=== PATIENT | female | born 1935 | race Caucasian/White ===

== ENCOUNTER → 2017-02-14 | Outpatient (CLI) | payer MEDICARE, OTHER ==
[~2017-02-14] MED LIST: ASPIRIN 32325 MG/TAB PO; NO HOME MEDICATIONS; NORCO 325 MG-51 TAB PO; PROBIOTIC FORMU1 CAP PO; PROTONIX 40MG T40 MG PO
== END ==
LOC: MC.RAD 10-17 13:00
DX: Z12.31 Encounter for screening mammogram for malignant neoplasm of breast (principal); D24.2 Benign neoplasm of left breast; D24.1 Benign neoplasm of right breast

== ENCOUNTER → 2018-04-30 | Outpatient (CLI) | payer MEDICARE, OTHER | LOC: MC.RAD 13:12 | DX: Z12.31 Encounter for screening mammogram for malignant neoplasm of breast (principal) ==

== ENCOUNTER → 2018-08-19 | Outpatient (CLI) | payer MEDICARE, OTHER ==
[2018-08-19] VITALS (13 sets, daily range): BP systolic 148–164; BP diastolic 83–110; PULSE 70–82
[~2018-08-19] VITALS: Ht 170.2 cm; Wt 80.2 kg
[2018-08-19 10:25] LABS: INR 0.9 (0.8-3.0); PROTHROMBIN TIME 10.6 SECONDS (9.7-12.8)
== END ==
LOC: COL.RAD 09:50
PROVIDERS: Internal Medicine Gastroenterology
DX: K76.0 Fatty (change of) liver, not elsewhere classified (principal); R74.0 Nonspecific elevation of levels of transaminase and lactic acid dehydrogenase [LDH]
CPT/HCPCS: 32108

== ENCOUNTER 2020-06-02 08:12 | Outpatient (CLI) | payer MEDICARE, OTHER ==
[2020-06-02] VITALS (9 sets, daily range): BP systolic 116–144; BP diastolic 70–94; PULSE 78–93; TEMP 98
[~2020-06-02] VITALS: Ht 170.2 cm; Wt 77.0 kg
[2020-06-02 09:01] LABS: MEAN CELL VOLUME 100 fl (80.0-100.0); MEAN CORPUSCULAR HEMOGLOBIN 32 pg (27.0-31.0); MEAN CORPUSCULAR HGB CONC 32 g/dl (33.0-37.0); MEAN PLATELET VOLUME 10.1 fl (7.4-10.4); PLATELET COUNT 175 K/mm3 (130-400); RED BLOOD COUNT 3.39 M/mm3 (4.10-5.30); REDCELL DISTRIBUTION WIDTH-CV 14.1 % (11.5-14.5)
[2020-06-02] MEDS ORDERED: TYLENOL 325MG325 MG PO (09:05)
[2020-06-02] MEDS ORDERED: ASPIRIN 32325 MG/TAB PO (09:05)
[2020-06-02] MEDS ORDERED: ANTACID500 M1 (09:06)
[2020-06-02] MEDS ORDERED: LASIX 20MG TABL20 MG PO (09:06)
[2020-06-02] MEDS ORDERED: PRINIVIL10 MG PO (09:07)
[2020-06-02] MEDS ORDERED: MELATONIN5 M1 SL (09:07)
[2020-06-02] MEDS ORDERED: ACTIGALL 300MG300 MG PO (09:08)
[2020-06-02 09:14] LABS: PROTHROMBIN TIME 11.3 SECONDS (9.7-12.8)
[2020-06-02 09:17] LABS: CALCIUM 9.7 mg/dL (8.4-10.2); CREATININE, serum 0.97 (0.52-1.25); POTASSIUM 4.5 mmol/L (3.4-5.0)
[2020-06-02] MEDS ORDERED: ZEBETA 5MG5 MG PO (17:22)
== END 2020-06-02 17:30 | disposition home or self-care (01) ==
LOC: COL.RAD 08:12
PROVIDERS: Internal Medicine Cardiovascular Disease
DX: I51.7 Cardiomegaly (principal); I35.8 Other nonrheumatic aortic valve disorders
CPT/HCPCS: C1769; J1644; J2250; J2704; J3010

== ENCOUNTER → 2021-08-25 | Outpatient (CLI) | payer MEDICARE, OTHER ==
[~2021-08-25] MED LIST changes: +ACTIGALL 300MG300 MG PO; +ANTACID500 M1; +LASIX 20MG TABL20 MG PO; +MELATONIN5 M1 SL; +PRINIVIL10 MG PO; +TYLENOL 325MG325 MG PO; +ZEBETA 5MG5 MG PO
== END ==
LOC: COL.RAD 12:24
DX: K76.89 Other specified diseases of liver (principal); K86.89 Other specified diseases of pancreas
CPT/HCPCS: A9585

== ENCOUNTER 2022-02-17 16:04 | Inpatient (IN) | payer MEDICARE, OTHER ==
[~2022-02-17] VITALS: Ht 167.6 cm; Wt 69.9 kg
[~2022-02-17 16:04] MED LIST changes: -ANTACID500 M1; +ANTACID500 M1 PO
[2022-02-17 20:47] VITALS: BP 115/64; PULSE 89; TEMP 97.4
[2022-02-17 23:20] LABS: HEMATOCRIT 30.2 % (37.0-47.0); HEMOGLOBIN 9.6 g/dl (12.5-16.0)
[2022-02-17 23:40] VITALS: BP 115/62; PULSE 86; TEMP 97.7
[2022-02-17 23:59] VITALS: BP 115/62; PULSE 83; TEMP 97.7
--- NOTE | 2022-02-18 00:35 | NUR ---
Pt was transferred into room during shift change. Alert and oriented to person, place, and year. Manny at bedside. Pt is hard of hearing and has hearing aids with her at bedside. Pt also reports wearing glasses, but did not bring them here with her. Pt reports a constant pain in her lower extremities, L>R. Prn oxycodone administered per orders. Shift assessment performed. Medications administered per orders and education provided. Pt has significant edema in the BLE, as well as the upper extremities. Weeping noted in both of the arms and legs. Pt has thin, easily torn skin. Noted 2 small skin tears on the left arm and one small skin tear on the right arm. Pt has a large hematoma on the right/back of her neck from a reported fall at [place]. Pt is also covered in bruises on her arms, legs, abdomen, back, and on the left side of her back. Noted a stage one pressure ulcer on arrival on the pt's sacral area, which was covered with a dressing. I removed the dressing and re-applied a new pressure dressing. Continuing to turn pt every 2 hours. Pt also came in with ramon bandage wraps around her ankles and feet. Her stated they were placed there for the weeping. Removed the ramon bandages and noted on the left foot multiple wounds on the top and lateral sides of the foot. Covered the wounds in non-adherent dressings. Pt came into the hopsital with a galindo catheter in place. Bag had minimal urine in it on admission. Will continue to monitor output. Pt claims she has lost a lot of weight over the past year and that she has a very poor appetite. Pt was admitted with a RW IV INT. IV flushes and draws back blood. Pt continues to grimmace in pain when palpated or moved. Vital signs stable on admission and continue to remain stable. Pt is resting quietly currently, reports no questions. Will continue to monitor.
[2022-02-18] MEDS ORDERED: ZOFRAN MDV2 MG/1 ML IM (01:10)
[2022-02-18] MEDS ORDERED: PEPCID 20MG TAB20 MG PO (01:11)
[2022-02-18] MEDS ORDERED: BACTROBAN 22GM22 GM NAS (01:12)
[2022-02-18] MEDS ORDERED: LEXAPRO 10MG10 MG PO (01:12)
[2022-02-18] MEDS ORDERED: ENULOSE10 GM/151 PO ×4 (01:14→01:16)
[2022-02-18] MEDS ORDERED: ROXICODONE 55 MG/TAB PO (01:17)
[2022-02-18] MEDS ORDERED: CIPRO 250MG TA250 MG PO (01:18)
[2022-02-18] MEDS ORDERED: TUCKS50% TP (01:20)
[2022-02-18 04:35] VITALS: BP 108/61; PULSE 90; TEMP 98
--- NOTE | 2022-02-18 05:05 | NUR ---
No adverse events overnight. Pt has slept all evening, but is alert and oriented when awoken, but quickly falls back asleep. Justice output has been about 250 ml so far. Urine is a red/yellow color. 3+ edema remains in legs and 2+ edema in arms. Non-adherent dressings applied to the wounds on the left foot. Continuing to turn pt every 2 hours. Pt still continues to weep from extremeties. Pt grimmaces and appears to be in extreme pain when the LE's and UE's are palpated or moved, but falls back asleep quickly when she is not being bothered. Pain medication was only administered x1 throughout the night. Vital signs remain stable. Pt reports no questions. Will continue to monitor, no new concerns at this time.
[2022-02-18 06:06] LABS: BASO % 0.1 % (0.0-2.0); EOS # 0.1 K/mm3 (0.0-0.7); EOS % 0.8 % (0.0-4.0); GRAN # 5.8 K/mm3 (1.4-6.5); GRAN % 79.8 % (42.2-75.2); LYMPH # 0.9 K/mm3 (1.2-3.4); LYMPH % 11.8 % (20.0-51.0); MEAN CELL VOLUME 96 fl (80.0-100.0); MEAN CORPUSCULAR HGB CONC 33 g/dl (33.0-37.0); MEAN PLATELET VOLUME 10.1 fl (7.4-10.4); MONO # 0.5 K/mm3 (0.1-0.6); PLATELET COUNT 123 K/mm3 (130-400); RED BLOOD COUNT 3.01 M/mm3 (4.10-5.30); REDCELL DISTRIBUTION WIDTH-CV 25.5 % (11.5-14.5)
[2022-02-18 06:11] LABS: HEMATOCRIT 28.8 % (37.0-47.0); HEMOGLOBIN 9.5 g/dl (12.5-16.0); MEAN CORPUSCULAR HEMOGLOBIN 32 pg (27-31)
[2022-02-18 06:22] LABS: ALBUMIN 1.4 gm/dL (3.4-4.8); BILIRUBIN,TOTAL 3.4 mg/dL (0.2-1.2); CALCIUM 7.7 mg/dL (8.4-10.2); CREATININE, serum 0.61 mg/dL (0.57-1.11); MAGNESIUM 1.9 mg/dL (1.6-2.6); POTASSIUM 3.9 mmol/L (3.5-4.5); TOTAL PROTEIN 4.8 gm/dL (6.2-8.1)
--- NOTE | 2022-02-18 06:30 | NUR ---
REPORT RCVD FROM JUDAH MEYER. THE PATIENT IS IN BED AT THIS TIME. DENIES ANY NEEDS.
[2022-02-18 08:08] VITALS: BP 128/58; PULSE 89; TEMP 97.7
[2022-02-18 12:10] VITALS: BP 88/60; PULSE 114; TEMP 97.5
--- NOTE | 2022-02-18 12:15 | NUR ---
THE PATIENT WAS ASSISTED UP TO BEDSIDE COMMODE. WHILE ON THE COMMODE, THE PATIENT COMPLAINED OF CHEST PAIN/PRESSURE AT AN 8/10. VITAL SIGNS OBTAINED AT THAT TIME; PRESSURE WAS 88/60. DR. BURRIS NOTIFIED, HE HELD THE LASIX HE HAD ORDERED AND THEN ORDERED A 500 ML BOLUS.
--- NOTE | 2022-02-18 12:19 | NUR ---
DR. BURRIS NOTIFIED OF PT PRESSURE CHEST PAIN 06/14 AND EKG COMPLETION. NO NEW ORDERS AT THIS TIME
[2022-02-18 14:19] VITALS: BP 110/67; PULSE 86
--- NOTE | 2022-02-18 14:21 | NUR ---
VSS OBTAINED POST 500ML BOLUS. BP 110/68. PT DENIES ANY CHEST PAIN AT THIS TIME.
--- NOTE | 2022-02-18 15:25 | NUR ---
SW met with patient to complete intake. Patient states that she lives in [place] with her Manny [phone]. Patient states that she does use a walker and has a private care person that comes to her home to assist with things around her home and care. PCP is Dr. Kamara, and pharmacy is [facility]. Patient states that her is appointed as her DPOA/HC. Patient states that her plan is to return home up on DC, and has no concerns or questions in doing so. SW will continue to follow. DC plan: home
[2022-02-18 15:28] VITALS: BP 119/77; PULSE 85; TEMP 97.8
[2022-02-18 19:07] LABS: COLLECTION METHOD CATHETER
[2022-02-18 19:25] LABS: BUDDING YEAST Present (NOT PRESENT); MUCOUS Present (NOT PRESENT); PH 5 (5-8); URINE APPEARANCE Turbid (CLEAR/HAZY); URINE BACTERIA Many /hpf (NONE SEEN); URINE BILIRUBIN Positive (NEGATIVE); URINE BLOOD 1+ (NEGATIVE); URINE COLOR Amber (YELLOW); URINE GLUCOSE Negative (NEGATIVE); URINE KETONE Negative (NEGATIVE); URINE LEUKOCYTE ESTERASE 2+ (NEGATIVE); URINE NITRATE Positive (NEGATIVE); URINE PROTEIN(semi-quant) 1+ (NEGATIVE); URINE RBC >50 /hpf (0-2); URINE UROBILINOGEN >=4.0 (NEGATIVE)
[2022-02-18 19:55] VITALS: BP 107/63; PULSE 93; TEMP 97.6
--- NOTE | 2022-02-18 23:55 | NUR ---
Pt is alert and oriented this evening, sleeping currently. Hearing aids in. pt verbally denies pain, but grimmaces/cries when her legs are moved/palpated. Offered multiple times to administer pain medication to the pt, but she denied wanting pain medication at this time. Shift assessment performed. Medications administered and education provided. 3+ edema noted in BLE and 2+ edema in the BUE. Weeping continues in upper and lower extremities. Attempted to apply SCD's to the pt's legs bilaterally, but once they started pumping, the pt was unable to tolerate the pain. SCD's remain off currently. Sacral area is still thinned, red, and non-blanchable. Pressure sacral dressing remains on. Contunuing to turn pt every 2 hours. Scattered bruising on BUE and BLE. Pt has a large red bruise on the left/back side of her neck from a fall at [place], as well as a raised bruised on the top of her head. Justice has poor output so far this evening. Urine is tea-colored. Vital signs are currently stable. Was told in report the pt's BP dropped to 88/60 today and was bolused. Pt's BP is currently stable, but continuing to monitor. Pt reports no questions. Continuing to monitor, no new concerns at this time.
[2022-02-19] VITALS (7 sets, daily range): BP systolic 109–128; BP diastolic 59–75; PULSE 83–96; TEMP 97.7–98.2
--- NOTE | 2022-02-19 00:41 | NUR ---
Pt reported being in a lot of pain "all over" to nursing unit manager. I brought a pain pill to the pt, but she refused and said "she's always in pain" but did not want a pain pill at this time. Returned pain medication back to pyxis. Will continue to reassess pt's pain.
--- NOTE | 2022-02-19 05:08 | NUR ---
Pt had an uneventful night. Slept a little overnight, but was more awake this past evening than the night before. Alert and oriented, though this morning she stated that there was "a dog with a long tail" in her bed and that the dog was making the ramón pad under her arm wet, which was acutally wet from her left arm weeping. Pt was able to correctly state where she was, but was insistent that there was a dog in her bed. Calm and cooperative overnight. Reports pain when she is moved, but denies pain when she is sitting still. Pt did not want pain medication overnight when offered multiple times. UO was poor, 150 ml total overnight. Urine is a yellow/red color and cloudy. Remains on room air. BP and HR stable. Priti care was performed, but no stools were noted overnight. Continuing to turn pt. SCD's remain off, because pt is unable to tolerate the pressure on her legs. Edema is still consistent in the UE/LE with weeping. Pt reports no questions this morning. Will continue to monitor, no new concerns at this time.
--- NOTE | 2022-02-19 06:30 | NUR ---
PT SLEEPING AT THIS TIME. WILL RETURN FOR ASSESSMENT AND MEDICATIONS.
[2022-02-19 07:15] LABS: BASO % 0.2 % (0.0-2.0); EOS # 0.1 K/mm3 (0.0-0.7); EOS % 1.5 % (0.0-4.0); GRAN # 6.7 K/mm3 (1.4-6.5); GRAN % 77.2 % (42.2-75.2); HEMOGLOBIN 10.1 g/dl (12.5-16.0); LYMPH # 1.2 K/mm3 (1.2-3.4); LYMPH % 13.3 % (20.0-51.0); MEAN CELL VOLUME 98 fl (80.0-100.0); MEAN CORPUSCULAR HEMOGLOBIN 31 pg (27-31); MEAN CORPUSCULAR HGB CONC 32 g/dl (33.0-37.0); MEAN PLATELET VOLUME 10.6 fl (7.4-10.4); MONO # 0.6 K/mm3 (0.1-0.6); MONO % 7.1 % (1.7-9.3); PLATELET COUNT 133 K/mm3 (130-400); RED BLOOD COUNT 3.23 M/mm3 (4.10-5.30); REDCELL DISTRIBUTION WIDTH-CV 25.8 % (11.5-14.5)
[2022-02-19 07:19] LABS: HEMATOCRIT 31.5 % (37.0-47.0)
[2022-02-19 07:27] LABS: INR 1.1 (0.8-3.0); PROTHROMBIN TIME 12.3 SECONDS (9.7-12.8)
[2022-02-19 07:46] LABS: ALBUMIN 1.6 gm/dL (3.4-4.8); BILIRUBIN,TOTAL 2.9 mg/dL (0.2-1.2); CALCIUM 7.8 mg/dL (8.4-10.2); CREATININE, serum 0.6 mg/dL (0.57-1.11); POTASSIUM 3.9 mmol/L (3.5-4.5); TOTAL PROTEIN 5.3 gm/dL (6.2-8.1)
--- NOTE | 2022-02-19 20:39 | NUR ---
Vancomycin Initial Dosing Pharmacy Note Ordering provider: Ian Friedman MD Indication/duration: Bilateral LE cellulitis Relevant comorbidities: N/A LABS: WBC = 8.7, SCr = 0.6, Cultures pending Recommendation: Will draw troughs and follow levels. Loading dose: 1.25 grams Maintenance dose: 1 gram every 24 hours Trough goal: 10-15 ug/mL
--- NOTE | 2022-02-19 20:45 | NUR ---
Initial shift assessment done- pt alert/whispers/hard to understand, oriented to person/denies being in pain at this time,jaundiced, galindo with cloudy agustín urine, arms and legs edematous and weeping, wounds to left foot with eschar, toe black, MRI/Echo tomorrow-
[2022-02-20 03:37] VITALS: BP 128/66; PULSE 88; TEMP 97.9
--- NOTE | 2022-02-20 05:24 | NUR ---
Has been awake most of the night- just short little naps- no requests, tried to get her to take a pain pill but insisted she did not need it- moan in pain when L leg touched, or turned. Has had 2 -3 soft formed stools tonight.
[2022-02-20 05:53] LABS: BASO % 0.3 % (0.0-2.0); EOS # 0.1 K/mm3 (0.0-0.7); EOS % 1.5 % (0.0-4.0); GRAN # 5.8 K/mm3 (1.4-6.5); GRAN % 78.1 % (42.2-75.2); MEAN CELL VOLUME 99 fl (80.0-100.0); MEAN CORPUSCULAR HGB CONC 33 g/dl (33.0-37.0); MEAN PLATELET VOLUME 10.4 fl (7.4-10.4); MONO # 0.5 K/mm3 (0.1-0.6); MONO % 6.3 % (1.7-9.3); PLATELET COUNT 125 K/mm3 (130-400); RED BLOOD COUNT 2.84 M/mm3 (4.10-5.30)
[2022-02-20 06:11] LABS: HEMATOCRIT 28.1 % (37.0-47.0); HEMOGLOBIN 9.2 g/dl (12.5-16.0); MEAN CORPUSCULAR HEMOGLOBIN 32 pg (27-31)
[2022-02-20 06:13] LABS: ALBUMIN 1.3 gm/dL (3.4-4.8); BILIRUBIN,TOTAL 2.6 mg/dL (0.2-1.2); CALCIUM 7.4 mg/dL (8.4-10.2); CREATININE, serum 0.57 mg/dL (0.57-1.11); POTASSIUM 3.6 mmol/L (3.5-4.5); TOTAL PROTEIN 4.8 gm/dL (6.2-8.1)
[2022-02-20 07:16] VITALS: BP 103/68; PULSE 92; TEMP 97.9
--- NOTE | 2022-02-20 10:02 | NUR ---
Initial visit; Patient thanked Fishing Rod Mechanic for looking in on her and offering God's blessings.
--- NOTE | 2022-02-20 10:38 | NUR ---
LIZY met with the patient, patients Manny and palliative care RN Cami to discuss the patient's poc. Patient verbalizes that she would like to try antibiotics first and if needed she "has" to do surgery. Patient appears to doze off during interaction and is agreeable to speaking further after her MRI today. Both JUDAH Almanza and ramon spoke about the possible need of buttermaker continuous churn antibiotics and the she would be getting a picc line. Manny repors that with her current state he is unable to bring her home and care for her.
--- NOTE | 2022-02-20 10:40 | NUR ---
Met with patient, her Manny, and [place] MEDEL during rounding this morning with Dr. Mansfield. Patient expressed desire to see what imaging showed first to help decide the treatment plan moving forward. Patient's is supportive and states that we will go with what the patient wants since she is able to make her own decisions. Manny is also in contact with patient's sons in [place]. I offered to talk with them if needed as well. Manny expressed concern over patient's upcoming appointment with [facility]. I informed Dr. Mansfield and he commented that he may consult them tomorrow. Manny given office number to reschedule her appoinment if needed.
[2022-02-20 12:25] VITALS: BP 115/67; PULSE 79; TEMP 97.5
[2022-02-20 15:58] VITALS: BP 113/70; PULSE 77; TEMP 97.8
--- NOTE | 2022-02-20 16:51 | NUR ---
THE PATIENT'S IV HAS INFILTRATED, THIS RN TRIED X1, AND THEN ANESTHESIOLOGY CAME TO ATTEMPT AN IV. HE IS AT BEDSIDE AT THIS TIME.
[2022-02-20 20:01] VITALS: BP 102/58; PULSE 80; TEMP 97.4
--- NOTE | 2022-02-20 20:30 | NUR ---
Initial shift assessment done- pt is alert/oriented to person, year, not time or place, VSS, denies pain, lower legs up on pillows- weeping, arms with skin tear that are weeping- whole bed change done due incontinent of large soft stool- Justice with scant agustín urine, did take a few sips of Ensure HS drink.
[2022-02-21 00:20] VITALS: BP 116/58; PULSE 82; TEMP 97.8
[2022-02-21 04:54] VITALS: BP 102/57; PULSE 80; TEMP 97.5
--- NOTE | 2022-02-21 05:17 | NUR ---
Repositioned, incontinent of small soft stool, VSS, Continues with weeping from bilateral arms-mult skin tears/edema.
[2022-02-21 06:22] LABS: BASO # 0.1 K/mm3 (0.0-0.2); BASO % 0.6 % (0.0-2.0); EOS # 0.1 K/mm3 (0.0-0.7); EOS % 1.5 % (0.0-4.0); GRAN % 76.7 % (42.2-75.2); LYMPH # 1.1 K/mm3 (1.2-3.4); LYMPH % 13.5 % (20.0-51.0); MEAN CELL VOLUME 98 fl (80.0-100.0); MEAN CORPUSCULAR HGB CONC 32 g/dl (33.0-37.0); MEAN PLATELET VOLUME 10.3 fl (7.4-10.4); MONO # 0.6 K/mm3 (0.1-0.6); MONO % 7.1 % (1.7-9.3); PLATELET COUNT 127 K/mm3 (130-400); REDCELL DISTRIBUTION WIDTH-CV 25.7 % (11.5-14.5)
[2022-02-21 06:26] LABS: HEMATOCRIT 30.5 % (37.0-47.0); HEMOGLOBIN 9.8 g/dl (12.5-16.0); MEAN CORPUSCULAR HEMOGLOBIN 32 pg (27-31)
--- NOTE | 2022-02-21 06:45 | NUR ---
THE PATIENT IS LAYING IN BED AT THIS TIME DENIES ANY PAIN. THE PATIENT'S ARMS ARE STILL EDEMETOUS AND WEEPY BILATERALLY. THE LOWER EXTREMETIES ARE BOTH +2 EDEMA AND THE LEFT FOOT IS STILL REDDENED AND HAS ULCERATIONS.
[2022-02-21 07:34] VITALS: BP 108/54; PULSE 75; TEMP 97.3
[2022-02-21 11:36] VITALS: BP 99/54; PULSE 84; TEMP 97.4
--- NOTE | 2022-02-21 13:22 | NUR ---
Met with patient and her after rounds. Patient states she is willing to do therapy for a few days and see how it goes. I asked her , Manny, if they had any preference for SNF placement and he would like [facility] if possible. I again talked with the patient about how aggressive she would like to be with her care. Her only real wish is to return home. Her and I talked about how even if she goes to a SNF for a while, the goal can be to return home. She nodded but wouldn't talk anymore about it. Notified LIZY Rhoades of preference for location.
--- NOTE | 2022-02-21 15:54 | NUR ---
Cindy with [facility] called stating that prior to transferring the patient to our facility [facility]. Cindy states that she "thought" [facility] accepted the patient but wasn't for sure, however they would not be able to accept the patient back due to not being able to meet her needs.
[2022-02-21 16:22] VITALS: BP 94/51; PULSE 95; TEMP 97.6
[2022-02-21 20:11] VITALS: BP 97/44; PULSE 95; TEMP 98.7
[2022-02-22] VITALS (7 sets, daily range): BP systolic 94–106; BP diastolic 45–57; PULSE 71–95; TEMP 97.4–98.3
--- NOTE | 2022-02-22 00:22 | NUR ---
Pt is alert and oriented this evening. Denies pain. States she just has pain when she is moved around. Shift assessment performed. Medications administered per orders and education provided. Pt is resting quietly in bed. Changed linens and ramón pads under arms due to weeping of the extremities. Pt still has 3+ edema in the BLE and 2-3+ edema in the BLE and trunk. Weeping continues, especially in the arms. Linens must be changed frequently. Pt's has very thin skin that tears easily. Noted multiple tears on both arms. Pt is also very bruised on the extremities, back, top of the head, and neck. Was informed that many of those were due to a fall at [place]. Pt has multiple wounds on the left foot. Wounds are hard and black. Her great toe on the left foot also has a hard black spot on it. Pt is very calm and cooperative. Tolerated PO medications with applesauce. Continuing to administer antibiotics per orders. Turning pt every 2 hours. Vital signs stable. Pt reports no questions, will continue to monitor.
--- NOTE | 2022-02-22 06:37 | NUR ---
Pt had an uneventful evening. Remained alert and oriented. Continued to deny pain overnight. Pt had 1 BM and 250 out in the galindo total. Administered IV antibx as ordered. Pt continues to have weeping. Changed the pt's gown and linens twice. Continued to turn pt every 2 hours. Dressing remains on sacral area. Pt tolerated pills well with applesauce. Frequently offered nutrition. Pt had good intake of juice and water. Pt reports no questions. Vital signs have remained stable. Will continue to monuitor.
[2022-02-22 07:48] LABS: BASO # 0.1 K/mm3 (0.0-0.2); BASO % 0.7 % (0.0-2.0); EOS # 0.1 K/mm3 (0.0-0.7); EOS % 1.6 % (0.0-4.0); GRAN # 6.3 K/mm3 (1.4-6.5); GRAN % 75.8 % (42.2-75.2); LYMPH # 1.2 K/mm3 (1.2-3.4); LYMPH % 14.6 % (20.0-51.0); MEAN CELL VOLUME 97 fl (80.0-100.0); MEAN CORPUSCULAR HGB CONC 33 g/dl (33.0-37.0); MEAN PLATELET VOLUME 10.5 fl (7.4-10.4); MONO # 0.6 K/mm3 (0.1-0.6); MONO % 6.7 % (1.7-9.3); PLATELET COUNT 148 K/mm3 (130-400); RED BLOOD COUNT 2.93 M/mm3 (4.10-5.30); REDCELL DISTRIBUTION WIDTH-CV 25.8 % (11.5-14.5)
[2022-02-22 07:51] LABS: HEMATOCRIT 28.4 % (37.0-47.0); HEMOGLOBIN 9.4 g/dl (12.5-16.0); MEAN CORPUSCULAR HEMOGLOBIN 32 pg (27-31)
[2022-02-22 08:00] LABS: ALBUMIN 1.4 gm/dL (3.4-4.8); BILIRUBIN,TOTAL 2.1 mg/dL (0.2-1.2); CALCIUM 7.4 mg/dL (8.4-10.2); CREATININE, serum 0.65 mg/dL (0.57-1.11); MAGNESIUM 1.9 mg/dL (1.6-2.6); POTASSIUM 3.3 mmol/L (3.5-4.5)
--- NOTE | 2022-02-22 09:00 | NUR ---
Assessment completed, alert/oriented, vital signs stable, patient reports 8/10 pain to BLE, Oxycodone given and will re-assess, she refuses some of her meds this morning and also refused to be repositioned, patient has many skin issues/ see assessment, galindo patent with yellow urine, IV Zosyn infusing now, palliative care consult in place for goals of care discussion, at bedside and they deny other needs at this time
--- NOTE | 2022-02-22 09:03 | NUR ---
Clinical updates faxed to [facility] Noon[facility]. Mar[facility]
--- NOTE | 2022-02-22 11:23 | NUR ---
Attended rounds with patient and her . At the end of our discussion it was decided that vascular should be consulted to see if they recommend tranfer for outpatient. would prefer the patient closer to home for SNF if possible. Patient verbalized understanding that if she doesn't have surgery, she may never walk again and she is not ready for that yet. I encouraged her to work with therapy and take her medication if she hopes to make any recovery/get out of bed. Patient was sleepy throughout our conversation but was able to explain everything that was talked about appropriately. Encouraged to ask questions and offered to stop back once vascular is consulted.
--- NOTE | 2022-02-22 12:24 | NUR ---
Phone message x2 left for [facility] with no contact back. Belinda with [facility] called stating that they are able to accept this patient for a transfer today. SW met with patient and patient's Manny to inform them of acceptance. Manny states that he would really [facility] Infomed him that at this time i have not heard anything back from there and [facility] has declined. Manny states " i guess well have to make it work" but asks if i try the [facility] again. Patient's RN and physician notified of acceptance.
--- NOTE | 2022-02-22 13:31 | NUR ---
[facility] exterminator [facility]. I informed her that the patient would be coming over with skilled orders but would most likely be transitioned to LTC. Informed [facility] of the conversations our team has been having with them. Wing states they would be able to accept and asked if i could facilitate getting the patients their application and get it back to them. Application received via email, printed and provided to the patients . Informed him i would check back on him after a while and get it back to the [facility] for them. Contact made with Belinda at [facility] stating that the patients preferred choice accepted.
--- NOTE | 2022-02-22 14:22 | NUR ---
Patients completed prison application sent to [facility] at [facility]. Leon inquires about the patient's transportation needs. Informed her that the patient's feels like EMS would be best, however after speaking with the patients RN, she could be transported by wheelchair with a dose of pain medication prior to leaving.
--- NOTE | 2022-02-22 15:31 | NUR ---
[facility] contacted and transportation arranged for 02/23 @0900. Patient's notified of the above. Per Sebas request, he would like for me to reach out to [facility] to see if they would be willing to provide transportation. When asked why, his response was "well i pay taxes there". Contact made with Captain of [facility] who states that if [facility] is already established, then EMS can provide the transportation.
[2022-02-23 00:46] VITALS: BP 91/58; PULSE 95; TEMP 98.8
[2022-02-23 04:56] VITALS: BP 96/54; PULSE 98; TEMP 98.4
[2022-02-23 06:05] LABS: BASO # 0.1 K/mm3 (0.0-0.2); BASO % 0.5 % (0.0-2.0); EOS # 0.2 K/mm3 (0.0-0.7); EOS % 2.1 % (0.0-4.0); GRAN # 7.3 K/mm3 (1.4-6.5); GRAN % 72.5 % (42.2-75.2); LYMPH # 1.8 K/mm3 (1.2-3.4); LYMPH % 17.9 % (20.0-51.0); MEAN CELL VOLUME 99 fl (80.0-100.0); MEAN CORPUSCULAR HGB CONC 33 g/dl (33.0-37.0); MEAN PLATELET VOLUME 10.1 fl (7.4-10.4); MONO # 0.7 K/mm3 (0.1-0.6); MONO % 6.4 % (1.7-9.3); PLATELET COUNT 144 K/mm3 (130-400); RED BLOOD COUNT 2.84 M/mm3 (4.10-5.30); REDCELL DISTRIBUTION WIDTH-CV 25.9 % (11.5-14.5)
[2022-02-23 06:16] LABS: HEMATOCRIT 28.2 % (37.0-47.0); HEMOGLOBIN 9.3 g/dl (12.5-16.0); MEAN CORPUSCULAR HEMOGLOBIN 33 pg (27-31)
--- NOTE | 2022-02-23 06:38 | NUR ---
ASSESSMENT COMPLETE FOR THIS SHIFT. PT RESTING IN BED, GOING BETWEEN WRENCHING IN PAIN AND NAPPING. PT COMPLAINED OF LEG PAIN. PT GIVEN ROXICODONE FOR PAIN. PT FELT ROXICODONE WAS EFFECTIVE FOR PAIN, LASTING THROUGH THE NIGHT (NOT NEEDING MORE UNTIL THIS MORNING). PT DENIES PALPITATIONS, N,V,D, SOB OR DIZZINESS. PT HAS SOME VERY SEVERE SKIN ISSUES (EDEMATOUS, WEEPY, THIN, SKIN TEARS, BRUISING, ETC.) WILL TRY TO PROTECT HER SKIN AND KEEP HER COMFORTABLE POSSIBLE. PT EXPRESSED NO OTHER NEEDS AT THIS TIME. CALL LIGHT WITHIN REACH.
[2022-02-23 07:42] VITALS: BP 101/56; BP 115/94; PULSE 111; PULSE 86; TEMP 97.7; TEMP 97.8
[2022-02-23] MEDS ORDERED: MONODOX100 PO (08:48)
[2022-02-23] MEDS ORDERED: ROXICODONE 55 MG/TAB PO ×3 (08:48→10:58)
[2022-02-23] MEDS ORDERED: ASPIRIN 81M81 MG/TA2 PO (08:48)
[2022-02-23] MEDS ORDERED: TYLENOL 325MG325 MG PO (08:49)
[2022-02-23] MEDS ORDERED: LEXAPRO 10MG10 MG PO (08:49)
[2022-02-23] MEDS ORDERED: LASIX 40MG TABL40 MG PO (08:49)
[2022-02-23] MEDS ORDERED: ANTACID500 M1 PO (08:50)
[2022-02-23] MEDS ORDERED: ACTIGALL 300MG300 MG PO (08:50)
[2022-02-23] MEDS ORDERED: PROTONIX 40MG T40 MG PO (08:51)
[2022-02-23] MEDS ORDERED: ZOFRAN ODT4 MG PO (08:51)
[2022-02-23 08:55] VITALS: BP 97/55; PULSE 82; TEMP 97.4
--- NOTE | 2022-02-23 09:04 | NUR ---
[facility] contacted LIZY. [facility] will have the patient or patient's sign an ABN. The [id number] cost they could be reliable for is $500. LIZY met with the patient's , Manny, and updated him on the above. He verbalized understanding and is okay with proceeding. LIZY presented Manny with the IM form and the EMS Consent Form. Manny verbalized understanding and of agreement to discharge today. He signed both forms. LIZY provided him a copy of the IM. The patient is to discharge today, 02/23, to [facility] for a skilled stay. Transportation was scheduled at 0900, via [facility]. LIZY informed the patient's , the RN, and [facility] at [facility] of the transport time. No additional needs at this time.
--- NOTE | 2022-02-23 09:15 | NUR ---
[facility]charge packet [facility] to EMS [facility] IV to left hand removed with tip intact. Justice removed by nursing home administrator per orders. Assisted EMS in transfering pt to [facility]. Pt wheeled out at this time w/[facility], accompanied by .
== END 2022-02-23 09:20 | DRG 444 ==
LOC: MEDICAL 16:04
PROVIDERS: Internal Medicine; Student in an Organized Health Care Education/Training Program; ADMIT Internal Medicine
DX: K83.1 Obstruction of bile duct (principal); E43 Unspecified severe protein-calorie malnutrition; G93.41 Metabolic encephalopathy; N39.0 Urinary tract infection, site not specified; L03.116 Cellulitis of left lower limb; G72.81 Critical illness myopathy; B37.49 Other urogenital candidiasis; K74.3 Primary biliary cirrhosis; Z66 Do not resuscitate; I50.9 Heart failure, unspecified; I08.1 Rheumatic disorders of both mitral and tricuspid valves; D64.9 Anemia, unspecified; F32.A Depression, unspecified; L89.151 Pressure ulcer of sacral region, stage 1; I70.202 Unspecified atherosclerosis of native arteries of extremities, left leg; Z68.23 Body mass index [BMI] 23.0-23.9, adult; R53.81 Other malaise; Z79.82 Long term (current) use of aspirin; Z95.2 Presence of prosthetic heart valve; Z96.643 Presence of artificial hip joint, bilateral; Z85.89 Personal history of malignant neoplasm of other organs and systems
CPT/HCPCS: 99223-AI; 99233-AI; 99239; A9575; J1450; J2543; J3370; J7040; J7050